=== PATIENT | male | born 1965 | race Caucasian/White ===

== ENCOUNTER 2017-08-02 22:17 | Emergency (ER) | payer OTHER ==
[~2017-08-02] VITALS: Ht 182.9 cm; Wt 104.3 kg
[~2017-08-02 22:17] MED LIST: ACET-685 PO
--- NOTE | 2017-08-02 22:30 | NUR ---
STATUS PT CONTINUES BEING EXTREMELY VOCAL, PT ANSWERS QUESTIONS OCCASIONALLY ON HIS TERMS, GIVES HEALTH AND SOCIAL HISTORY A SPEECH,
--- NOTE | 2017-08-02 22:31 | NUR ---
STATUS PT STOPPED TALKING AND GOES "OH MY GOODNESS, NO ONE IS HERE BUT I JUST KEPT TALKING"
--- NOTE | 2017-08-02 22:43 | NUR ---
PT SPITTING IN THE SHEET ON THE STRETCHER, ENCOURAGED NOT TO DO THAT, PROVIDED WITH EMESIS BASIN, AND ENCOURAGED TO SPIT IN BASIN
--- NOTE | 2017-08-02 22:50 | NUR ---
Urine Sample Brought patient a urinal for the UA sample. Patient states that "he is not going to pee until he has to and he gets a beer" I imformed him that he was in a hospital and we can not get him a beer that the doctor is requesting that we get a urine sample from him to help treat him. Patient states " I'm not going to force myself to pee unless I have a beer"
--- NOTE | 2017-08-02 22:59 | PCM.EKG ---
[facility] Test Date: 2017-08-02 Test Time: 22:21:43 Pat Name: JONATHAN PÉREZ Department: Room: Gender: M Fire Control Officer: AMANDA : 1965 Requested By: JACKIE HOLT Order Number: [id number] Reading MD: Measurements Intervals [place] Rate: 91 P: 76 DE: 152 QRS: 78 QRSD: 86 T: 70 QT: 374 QTc: 460 Interpretive Statements Normal sinus rhythm Normal ECG No previous ECG available for comparison Please click the below link to view image of tracing.
--- NOTE | 2017-08-02 23:00 | NUR ---
status pt continues talking with minimal pauses. family members with pt.
[2017-08-02 23:13] LABS: BASOPHIL % 0.1 % (0.0-0.2); EOSINOPHIL # 0.1 10^3/uL (0.0-0.2); EOSINOPHIL % 0.8 % (0.0-5.0); HEMOGLOBIN 13.8 g/dL (13.9-16.3); LYMPHOCYTES # 1.1 10^3/uL (1.0-4.8); LYMPHOCYTES % 13.6 % (24.0-44.0); MEAN CELL HGB 30.6 pg (26-34); MEAN CELL HGB CONCENTRATION 32.8 g/dL (33-37); MEAN CORP VOLUME 93.3 fL (78-100); MEAN PLATELET VOLUME 9.8 fL (7.8-11.0); MONOCYTES # 0.8 10^3/uL (0.3-0.8); MONOCYTES % 10.7 % (5.0-12.0); NEUTROPHIL # 5.9 10^3/uL (1.8-7.7); NEUTROPHILS % 74.5 % (41.0-85.0); RED CELL DISTRIBUTION WIDTH 12.4 % (11.5-14.5); WHITE BLOOD CELL 7.9 10^3/uL (4.5-11.0)
[2017-08-02 23:36] LABS: ALANINE AMINOTRANSFERASE(ML) 55 U/L (12-78); ALKALINE PHOSPHATASE 91 U/L (50-136); ASPARTATE AMINO TRANSFERASE 48 U/L (0-35); CALCIUM 8.7 mg/dL (8.4-10.5); CARBON DIOXIDE 29.7 mmol/L (20.0-32); GLUCOSE 145 mg/dL (70-110)
--- NOTE | 2017-08-02 23:45 | ER.PDOC ---
General Chief Complaint: Chest Pain-Cardiac Nature Stated Complaint: CHEST PAIN TRAVEL OUT OF US: No Time seen by MD: 23:00 Source: patient Exam Limitations: no limitations History of Present Illness Initial Comments Anxiety Severity: moderate Associated Symptoms: denies symptoms Allergies: Coded Allergies: No Known Allergies (Unverified , 07/04/15) Home Meds Reported Medications Acetaminophen With Codeine (TYLENOL WITH CODEINE #3 TABLET) 1 Each Tablet, 1 TAB PO Q6, #30 TAB 07/04/15 Past Medical History Medical History: cardiac problems Surgical History: back Social History Alcohol Use: occassionally Drug Use: marijuana Review of Systems Constitutional: no symptoms reported Respiratory: no symptoms reported Cardiovascular: no symptoms reported Gastrointestinal: no symptoms reported Psychiatric/Neurological: see HPI All Other Systems: Reviewed and Negative Physical Exam General Appearance: No Apparent Distress, WD/WN Neck: Non-Tender, Full Range of Motion, Supple, Normal Inspection Respiratory: chest non-tender, lungs clear, normal breath sounds, no respiratory distress, no accessory muscle use CVS: reg rate & rhythm, no murmur, no gallop, pulses nml, nml capillary refill Gastrointestinal: Normal Bowel Sounds, No Organomegaly, No Pulsatile Mass Back: Normal Inspection Extremities: Normal Range of Motion 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 Results/Orders Results/Orders Laboratory Tests Test 08/02/17 23:08 White Blood Count 7.9 10^3/uL (4.5-11.0) Red Blood Count 4.51 10^6/uL (4.50-5.90) Hemoglobin 13.8 g/dL (13.9-16.3) Hematocrit 42.1 % (37.0-53.0) Mean Corpuscular Volume 93.3 fL (78-100) Mean Corpuscular Hemoglobin 30.6 pg (26-34) Mean Corpuscular Hemoglobin Concent 32.8 g/dL (33-37) Red Cell Distribution Width 12.4 % (11.5-14.5) Platelet Count 175 10^3/uL (150-400) Mean Platelet Volume 9.8 fL (7.8-11.0) Neutrophils (%) (Auto) 74.5 % (41.0-85.0) Lymphocytes (%) (Auto) 13.6 % (24.0-44.0) Monocytes (%) (Auto) 10.7 % (5.0-12.0) Neutrophils # (Auto) 5.9 10^3/uL (1.8-7.7) Lymphocytes # (Auto) 1.1 10^3/uL (1.0-4.8) Monocytes # (Auto) 0.8 10^3/uL (0.3-0.8) Absolute Immature Granulocyte (auto 0.02 10^3 u/L (0-2) Eosinophils % 0.8 % (0.0-5.0) Basophils % 0.1 % (0.0-0.2) Basophils # 0.0 10^3/uL (0.0-0.1) Eosinophil Count 0.1 10^3/uL (0.0-0.2) Sodium Level 140 mmol/L (132-145) Potassium Level 4.0 mmol/L (3.6-5.2) Chloride Level 102.0 mmol/L (96-109) Carbon Dioxide Level 29.7 mmol/L (20.0-32) Anion Gap 12.3 Blood Urea Nitrogen 22 mg/dL (7-18) Creatinine 0.99 mg/dL (0.59-1.40) Estimated GFR () 96.4 (>/=60) BUN/Creatinine Ratio 22.0 Glucose Level 145 mg/dL (70-110) Calcium Level 8.7 mg/dL (8.4-10.5) Total Bilirubin 1.0 mg/dL (0.2-1.0) Aspartate Amino Transf (AST/SGOT) 48 U/L (0-35) Alanine Aminotransferase (ALT/SGPT) 55 U/L (12-78) Alkaline Phosphatase 91 U/L (50-136) Troponin I < 0.02 ng/mL (0.00-0.05) Total Protein 7.3 g/dL (6.4-8.2) Albumin 3.3 g/dL (3.4-5.0) Globulin 4.0 Lipase 95 U/L (114-286) Serum Alcohol < 3 mg/dL (3-50) Percent Immature Gran (Cell Imm) 0.30 % (0.00-0.50) Course Blood Pressure Systolic: 131 Blood Pressure Diastolic: 88 Blood Pressure Mean: 102 Departure Time of Disposition: 23:44 Disposition: 01 HOME, SELF-CARE Impression: Primary Impression: Anxiety Condition: Stable Referrals: PCP,UNKNOWN (PCP) PRIMARY CARE PROVIDER Additional Instructions: F/U with your PCP in 1-2 days Duration or Time Spent with Pa: 40 mins JACKIE HOLT MD Aug 02, 2017 23:45
--- NOTE | 2017-08-02 23:52 | NUR ---
STATUS PT'S SISTER REQUESTED PT HAVE A SHOT FOR ANXIETY, PT'S SISTER STATED IF A SHOT FOR ANXIETY WAS GIVEN SHE WOULD HAVE PT STAY WITH KATHIA. DR HOLT UPDATED. OK TO GIVE ATIVAN 2MG IM PER DR HOLT.
[2017-08-02] MEDS ORDERED: ATIVAN ONE (23:54)
[2017-08-02] MEDS ORDERED: ATIVAN IM STA (23:58)
--- NOTE | 2017-08-03 00:01 | NUR ---
STATUS PT'S SPEECH ANIMATED, PT TALKING, WHEN ASKED A DIRECT QUESTION, PT WOULD STOP TALKING AND ANSWER QUESTION APPROPRIATELY.
--- NOTE | 2017-08-03 00:15 | NUR ---
DISCHARGE DISCHARGE INSTRUCTIONS DISCUSSED. PT'S SISTER VERBALIZED UNDERSTANDING. PT REPLIED THAT HE WAS READY TO GO. IV DC'D, TIP INTACT. ENCOURAGED TO RETURN FOR ANY CONCERNS.
[2017-08-03 02:21] VITALS: BP 124/78
== END 2017-08-03 00:15 | disposition home or self-care (01) ==
LOC: ER 22:17
DX: F41.9 Anxiety disorder, unspecified (principal); F12.10 Cannabis abuse, uncomplicated; Z79.899 Other long term (current) drug therapy
CPT/HCPCS: 36415; 80053; 83690; 84484; 85025; 93005; 96372; 99285; G0481; J2060

== ENCOUNTER 2017-08-03 12:34 | Emergency (ER) | payer SELFPAY ==
[~2017-08-03] VITALS: Ht 180.3 cm; Wt 113.4 kg
[2017-08-03 13:03] VITALS: BP 162/86
[2017-08-03] MEDS ORDERED: ATIVAN ONE (13:04)
[2017-08-03] MEDS: ATIVAN IV STA (13:44)
[2017-08-03 13:57] LABS: HEMOGLOBIN 12.7 g/dL (13.9-16.3); MEAN CELL HGB 30.5 pg (26-34); MEAN CELL HGB CONCENTRATION 32.6 g/dL (33-37); MEAN CORP VOLUME 93.8 fL (78-100); MEAN PLATELET VOLUME 9.9 fL (7.8-11.0); RED CELL DISTRIBUTION WIDTH 12.3 % (11.5-14.5); WHITE BLOOD CELL 5.2 10^3/uL (4.5-11.0)
[2017-08-03 14:15] LABS: CALCIUM 7.6 mg/dL (8.4-10.5)
--- NOTE | 2017-08-03 15:19 | DIREP ---
PROCEDURE:CHEST 1 VIEW COMPARISON:None. INDICATIONS:Short of breath FINDINGS: LUNGS/PLEURA:No significant pulmonary parenchymal abnormalities. No effusions. VASCULATURE:Normal. Unremarkable pulmonary vasculature. CARDIAC:Normal. No cardiac silhouette abnormality or cardiomegaly. MEDIASTINUM:Normal. No visible mass or adenopathy. BONES:Normal. No fracture or visible bony lesion. OTHER:Negative. CONCLUSION:No acute cardiopulmonary abnormalities. Dictated by: Jairo Arnold M.D. on 08/03/2017 at 03:18 PM
--- NOTE | 2017-08-06 09:12 | ER.PDOC ---
General Chief Complaint: Nausea,Vomiting,Diarrhea Stated Complaint: N/V Time seen by MD: 13:00 Source: family Exam Limitations: clinical condition History of Present Illness Initial Comments Pt was initially combative and disoriented x 15mins Severity/Quality: moderate Associated Symptoms (vomiting): mild vomiting Allergies: Coded Allergies: No Known Allergies (Unverified , 07/04/15) Home Meds Reported Medications Acetaminophen With Codeine (TYLENOL WITH CODEINE #3 TABLET) 1 Each Tablet, 1 TAB PO Q6, #30 TAB 07/04/15 Vital Signs First Vital Signs Date Time Temp Pulse Resp B/P (MAP) Pulse Ox O2 Delivery O2 Flow Rate FiO2 08/03/17 12:36 98.0 08/03/17 12:48 84 20 98 08/03/17 13:03 162/86 (111) Last Vital Signs Date Time Temp Pulse Resp B/P (MAP) Pulse Ox O2 Delivery O2 Flow Rate FiO2 08/03/17 13:03 98.0 84 20 162/86 (111) 98 Past Medical History Medical History: congestive heart failure Surgical History: back Social History Drug Use: marijuana Constitutional: no symptoms reported EENTM: no symptoms reported Respiratory: no symptoms reported Cardiovascular: no symptoms reported Gastrointestinal: nausea, vomiting Genitourinary: no symptoms reported Musculoskeletal: no symptoms reported Psychiatric/Neurological: no symptoms reported Endocrine: no symptoms reported Hematologic/Lymphatic: no symptoms reported Physical Exam General Appearance: No Apparent Distress HEENT: PERRL/EOMI, Normal ENT Inspection, TMs Normal, Pharynx Normal Neck: Non-Tender, Full Range of Motion, Supple, Normal Inspection Respiratory: chest non-tender, lungs clear, normal breath sounds, no respiratory distress, no accessory muscle use Cardiovascular: Normal Peripheral Pulses, Regular Rate, Rhythm, No Edema, No Gallop, No JVD, No Murmur Gastrointestinal: Normal Bowel Sounds, No Organomegaly, No Pulsatile Mass, Non Tender Back: Normal Inspection, No CVA Tenderness, No Vertebral Tenderness Extremities: Normal Range of Motion, Non-Tender, Normal Inspection, No Pedal Edema, No Calf Tenderness, Normal Capillary Refill, Pelvis Stable 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, No Motor/Sensory Deficits, Alert Skin: Normal Color, Warm/Dry Lymphatic: No Adenopathy (Pt was combative when brought in by the EMS and he was given Ativan 1mg IM.) Results/Orders Results/Orders Laboratory Tests Test 08/03/17 13:52 White Blood Count 5.2 10^3/uL (4.5-11.0) Red Blood Count 4.16 10^6/uL (4.50-5.90) Hemoglobin 12.7 g/dL (13.9-16.3) Hematocrit 39.0 % (37.0-53.0) Mean Corpuscular Volume 93.8 fL (78-100) Mean Corpuscular Hemoglobin 30.5 pg (26-34) Mean Corpuscular Hemoglobin Concent 32.6 g/dL (33-37) Red Cell Distribution Width 12.3 % (11.5-14.5) Platelet Count 146 10^3/uL (150-400) Mean Platelet Volume 9.9 fL (7.8-11.0) Sodium Level 138 mmol/L (132-145) Potassium Level 2.9 mmol/L (3.6-5.2) Chloride Level 104.0 mmol/L (96-109) Carbon Dioxide Level 26.0 mmol/L (20.0-32) Anion Gap 10.9 Blood Urea Nitrogen 15 mg/dL (7-18) Creatinine 0.87 mg/dL (0.59-1.40) Estimated GFR () 111.9 (>/=60) BUN/Creatinine Ratio 17.0 Glucose Level 99 mg/dL (70-110) Calcium Level 7.6 mg/dL (8.4-10.5) Total Bilirubin 0.6 mg/dL (0.2-1.0) Aspartate Amino Transf (AST/SGOT) 33 U/L (0-35) Alanine Aminotransferase (ALT/SGPT) 41 U/L (12-78) Alkaline Phosphatase 75 U/L (50-136) Total Protein 6.1 g/dL (6.4-8.2) Albumin 2.7 g/dL (3.4-5.0) Globulin 3.4 EKG/XRAY/CT/US XRAY: chest (no cardiopulmonary abnormality.) Departure Time of Disposition: 15:30 Disposition: 07 ELOPED Impression: Primary Impression: Nausea Additional Impressions: Vomiting Panic anxiety syndrome Condition: Against Medical Advice Referrals: PCP,UNKNOWN (PCP) PRIMARY CARE PROVIDER Duration or Time Spent with Pa: 30mins NELI GRANT MD Aug 06, 2017 09:12
== END 2017-08-03 15:51 | disposition home or self-care (01) ==
LOC: EDBD 12:34 → ER 12:34
DX: R11.2 Nausea with vomiting, unspecified (principal); F41.0 Panic disorder [episodic paroxysmal anxiety]; F12.10 Cannabis abuse, uncomplicated; I50.9 Heart failure, unspecified; Z79.899 Other long term (current) drug therapy
CPT/HCPCS: 36415; 71045; 80053; 85027; 96374; 99285; J2060